=== PATIENT | male | born 1990 | race Caucasian/White ===

== ENCOUNTER 2020-10-15 09:41 | Outpatient (REF) | payer SELFPAY | END 2020-10-15 09:42 | disposition home or self-care (01) | LOC: HO.LAB 09:41 | PROVIDERS: Visit Provider Internal Medicine | DX: Z20.828 Contact with and (suspected) exposure to other viral communicable diseases (principal) | CPT/HCPCS: C9803; U0003 ==

== ENCOUNTER 2025-07-22 06:32 | Outpatient (REF) | payer OTHER, SELFPAY ==
--- OUTSIDE RECORDS SUMMARY | 2022-11-01 19:10 | XMS_ITS | Encounter Summary ---
Author Organization [facility] Address [address] [place] [address] [place] [address] Phone Care Team Providers Care Still Operator Whiskey Name Role Phone Mirella Rodarte Primary Care Provider [phone] Encounter Details Date Type Department Care Team (Late st Contact Info) Description 11/01/2022 6:10 PM [facility] Hospital Encounter [facility] [address] [place] [address] Viviana Milner CNP [address] [place] [address] [email or web address] Social History Tobacco Use Types Packs/Day Years Used Date Smoking Tobacco: Never Smokeless Tobacco: Never Alcohol Use Standard Drinks/Week Comments Yes 0 (1 standard drink = 0.6 oz pur e alcohol) 3x year Child or Family Care Answer Date Record ed Do you have problems with on e of the following making it difficult for you to work, study, or receive health care? No 08/18/2024 Education Answer Date Recorded Are you interested in help w ith more adult education (for example, completing high school, GED, job training, learning the Haitian language, technical skills, or developing parenting skills)? No 08/18/2024 Are you concerned about learning? Not on file 08/18/2024 No 08/18/2024 Yes 08/18/2024 Food Answer Date Recorded Within the past 6 months we worried whether our food would run out before we got money to buy more. Never True 08/18/2024 Within the past 6 months the food we bought just didn't last and we didn't have enough money to get more. Never True Residential Stability Answer Date Recor ded What is your housing situation today? I have jessica kemp 08/18/2024 How many times have you move d in the past 12 months? Zero (I did not move) 08/18/2024 Paying for Meds Answer Date Recorded Do you have trouble paying for medicines? No 08/18/2024 Paying Utility Bills Answer Date Record ed Do you have trouble paying your heating or elect ricity bill? No 08/18/2024 Transportation Answer Date Recorded Has the lack of transportati on kept you from medical appointments or from getting medications? No 08/18/2024 Unemployment Answer Date Recorded Are you currently unemployed or working on a part-time or temporary basis, and looking for work? No 08/18/2024 Digital Access Answer Date Recorded No 08/18/2024 Yes 08/18/2024 Do you have reliable internet access at home? Ye s 08/18/2024 Do you have a device (e.g., phone, tablet, computer) with a working camera? Yes 08/18/2024 Intimate Partner Violence Answer Date R ecorded Are you denied basic needs s uch as food, clothing, or medical care? No 10/05/2024 In the past 12 months have y ou been in a relationship with a person who hurts, threatens, or tries to control you? No 10/05/2024 Are you denied basic needs s uch as food, clothing, or medical care? No 10/05/2024 In the past 12 months have y ou been in a relationship with a person who hurts, threatens, or tries to control you? No 10/05/2024 Sex and Gender Information Value Date Recorded Sex Assigned at Male 01/11/2021 3:44 PM EST Legal Sex Male 5:25 PM EST Gender Identity Male 01/11/2021 3:44 PM EST Sexual Orientation Straight 01/11/2021 3: 44 PM EST documented as of this encounter Functional Status * Calculated C-SSRS Risk Score (Lifetime/Recent) Answer Date of Assessment Author No Risk Indicated 03/02/2024 5:13 PM EDT Jessika Waite, RN * Richardson Suicide Severity Rating Scale (Screener/Recent Self-Report) Question Answer Date of Assessment Author 1. Wish to be (Past 1 Month) No 024 5:13 PM EDT Jessika Waite RN 2. Non-Specific Active Suici kaycee Thoughts (Past 1 Month) No 03/02/2024 5:13 PM EDT Jessika Waite RN 6. Suicidal Behavior (Lifetime) No 5:13 PM EDT Jessika Waite RN documented as of this encounter Plan of Treatment Upcoming Encounters Date Type Department Care Team (Latest Contact Info) Description 10/08/2025 2:30 PM EST Telemedicine - audio only [facility] Neurology [address] [place] [address] [place] [address] Cornell Hernandez MD [address] [place] [address], [address] [place] [address] [email or web address] 02/17/2026 4:00 PM EDT Office Visit [address] [place] [address] Haydee Moore [address] [place] [address], [address] [place] [address] [email or web address] documented as of this encounter Procedures Procedure Name Priority Date/Time Associated Diagnosis Comments XR FOOT 3 OR MORE VIEWS (RIGHT) Urgent/patient waiting 11/01/2022 6:19 PM EST Acute foot pain, right documented in this encounter Results * XR FOOT 3 OR MORE VIEWS (RIGHT) (11/01/2022 6:19 PM EST) Anatomical Region Laterality Modality Foot Right Computed Radiogr aphy 11/01/2022 6:36 PM EST Impressions 11/01/2022 6:38 PM EST 1. Possible cortical lucencies along the lateral cuneiforms seen on AP and oblique views, without discrete cortical break, may be due to tissue overlay, represent nutrient channels, or suggest nondisplaced fracture. Correlation with point tenderness. 2. Soft tissue swelling about the forefoot. A clinically significant result was communicated and documented via a closed loop communication system. Narrative 11/01/2022 6:38 PM EST XR FOOT 3 OR MORE VIEWS (RIGHT) COMPARISON: None. FINDINGS: Possible cortical lucencies along the lateral cuneiform seen on AP and oblique views, without discrete cortical break. Normal alignment. Scattered degenerative changes of the forefoot and interphalangeal joints. Tiny crescentic cortical outgrowth of the first digit distal phalanx with possible medullary continuity, likely benign, such as osteochondroma. Mild soft tissue swelling along the dorsal, medial greater than lateral, forefoot. Procedure Note Ibeth Sunshine MD - 11/01/2022 XR FOOT 3 OR MORE VIEWS (RIGHT) COMPARISON: None. FINDINGS: Possible cortical lucencies along the lateral cuneiform seen on AP andoblique views, without discrete cortical break. Normal alignment.Scattered degenerative changes of the forefoot and interphalangeal joints.Tiny crescentic cortical outgrowth of the first digit distal phalanx withpossible medullary continuity, likely benign, such as osteochondroma. Mildsoft tissue swelling along the dorsal, medial greater than lateral,forefoot. IMPRESSION: 1. Possible cortical lucencies along the lateral cuneiforms seen on APand oblique views, without discrete cortical break, may be due to tissueoverlay, represent nutrient channels, or suggest nondisplaced fracture.Correlation with point tenderness. 2. Soft tissue swelling about the forefoot. A clinically significant result was communicated and documented via aclosed loop communication system. us Viviana Milner POWER MULE OPERATOR IMG XR LOWER EXTREMITY Ella l Result documented in this encounter Visit Diagnoses Not on filedocumented in this encounter Additional Health Concerns Infection Onset Date Last Indicated Resolved Time COVID-19 12/29/2024 12/29/2024 01/19/2025 1:23 AM EST documented as of this encounter Care Teams Still Operator Whiskey Relationship Specialty Start Date End Date Mirella Rodarte PA [address] [place] [address] PCP - General 10/03/22 08/23/24 documented as of this encounter Additional Source Comments The information contained in this document represents components of the legal health record. It is not the complete legal health record.[facility]
--- OUTSIDE RECORDS SUMMARY | 2025-07-22 06:34 | XMS_ITS | Encounter Summary ---
Author Organization [facility] Address [address] [place] [address] [place] [address] Phone Care Team Providers Care Recording Studio Intern Name Role Phone Shekhar Parham MD Primary Care Provider [phone] Unknown, Unknown Primary Care Provider Shekhar Marie MD Primary Care Provider [phone] Mirella Rodarte Primary Care Provider [phone] Haydee Moore Primary Care Provider Encounter Details Date Type Department Care Team (Late st Contact Info) Description 08/02/2021 Procedure Pass [facility] Endoscopy Admitting Dept Virtual Department [address] [place] [address] Social History Tobacco Use Types Packs/Day Years Used Date Smoking Tobacco: Never Smokeless Tobacco: Never Alcohol Use Standard Drinks/Week Comments Yes 0 (1 standard drink = 0.6 oz pur e alcohol) rare Sex and Gender Information Value Date Recorded Sex Assigned at Male 01/11/2021 3:44 PM EST Legal Sex Male 5:25 PM EST Gender Identity Male 01/11/2021 3:44 PM EST Sexual Orientation Straight 01/11/2021 3: 44 PM EST documented as of this encounter Plan of Treatment Upcoming Encounters Date Type Department Care Team (Latest Contact Info) Description 10/08/2025 2:30 PM EST Telemedicine - audio only [facility] Neurology [address] [place] [address] [place] [address] Cornell Hernandez MD [address] [facility], 2nd [place] [address] 02/17/2026 4:00 PM EDT Office Visit [facility] [address] [address] Haydee Moore [address] [facility], [address] [place] [address] [email or web address] documented as of this encounter Visit Diagnoses Not on filedocumented in this encounter Additional Health Concerns Infection Onset Date Last Indicated Resolved Time CoV-Risk 11/27/2021 11/27/2021 12/07/2021 1:24 AM EST COVID-19 12/29/2024 12/29/2024 01/19/2025 1:23 AM EST documented as of this encounter Care Teams Recording Studio Intern Relationship Specialty Start Date End Date Shekhar Parham MD [address] [place] [address], [address] [place] [address] PCP - General Internal Medicine 05/27/20 02/19/22 Unknown, MD Juan Luis PCP - General 02/20/22 03/15/22 Shekhar Parham MD [address] [place] [address], [address] [place] [address] PCP - General Internal Medicine 03/16/22 10/02/22 Mirella Rodarte PA [address] [place] [address] PCP - General 10/03/22 08/23/24 Haydee Moore [address] [place] [address], [address] [place] [address] PCP - General Family Medicine 08/24/24 documented as of this encounter Additional Source Comments The information contained in this document represents components of the legal health record. It is not the complete legal health record.[facility]
--- OUTSIDE RECORDS SUMMARY | 2025-07-22 06:34 | XMS_ITS | Encounter Summary ---
Author Organization [facility] [place] [facility] Address [address] [place] [address] [place] [address] Phone Care Team Providers Care Security Tech Name Role Phone Shekhar Parham MD Primary Care Provider [phone] Unknown, Unknown Primary Care Provider Shekhar Marie MD Primary Care Provider [phone] Mirella Rodarte Primary Care Provider [phone] Haydee Moore Primary Care Provider Encounter Details Date Type Department Care Team (Late st Contact Info) Description 06/02/2021 Procedure Pass [address] [address] Social History Tobacco Use Types Packs/Day Years [...] 2:30 PM EST Telemedicine - audio only [facility] Neurology [address] [place] [address] [place] [address] Cornell Hernandez MD 22 [facility], 2nd [place] [address] 02/17/2026 4:00 PM EDT Office Visit [facility] Medicine [address] [place] [address] [place] [address] Haydee Moore 22 [facility], [address] [place] [address] [email or web address] documented as of this encounter Visit Diagnoses Not on filedocumented in this encounter Additional Health Concerns Infection Onset Date Last Indicated Resolved Time CoV-Risk 11/27/2021 11/27/2021 12/07/2021 1:24 AM EST COVID-19 12/29/2024 12/29/2024 01/19/2025 1:23 AM EST documented as of this encounter Care Teams Security Tech Relationship Specialty Start Date End Date Shekhar Parham MD [address] [place] [address], [address] [place] [address] PCP - General Internal Medicine 05/27/20 02/19/22 Unknown, MD Juan Luis PCP - General 02/20/22 03/15/22 Shekhar Parham MD [address] [place] [address], [address] [place] [address] PCP - General Internal Medicine 03/16/22 10/02/22 Mirella Rodarte PA [address] [place] [address] PCP - General 10/03/22 08/23/24 Haydee Moore [address] [place] [address], [address] [place] [address] PCP - General Family Medicine 08/24/24 documented as of this encounter Additional Source Comments The information contained in this document represents components of the legal health record. It is not the complete legal health record.[facility] [place]
--- OUTSIDE RECORDS SUMMARY | 2025-07-22 06:34 | XMS_ITS | Encounter Summary ---
Author Organization [facility] Address [address] [place] [address] [place] [address] Phone Care Team Providers Care Full Time Staff Interpreter Name Role Phone Shekhar Parham MD Primary Care Provider [phone] Unknown, Unknown Primary Care Provider Shekhar Marie MD Primary Care Provider [phone] Mirella Rodarte Primary Care Provider [phone] Haydee Moore Primary Care Provider Encounter Details Date Type Department Care Team (Late st Contact Info) Description 08/02/2021 Procedure Pass [facility] Endoscopy Admitting Dept Virtual Department [address] [place] [address] Social History Tobacco Use Types Packs/Day Years [...] 2:30 PM EST Telemedicine - audio only [facility] Neurology [address] [place] [address] [place] [address] Cornell Hernandez MD 22 [facility], 2nd [facility] [place] [address] 02/17/2026 4:00 PM EDT Office Visit [facility] [address] [address] Haydee Moore 22 [facility], [address] [place] [address] [email or web address] documented as of this encounter Visit Diagnoses Not on filedocumented in this encounter Additional Health Concerns Infection Onset Date Last Indicated Resolved Time CoV-Risk 11/27/2021 11/27/2021 12/07/2021 1:24 AM EST COVID-19 12/29/2024 12/29/2024 01/19/2025 1:23 AM EST documented as of this encounter Care Teams Full Time Staff Interpreter Relationship Specialty Start Date End Date Shekhar Parham MD [address] [place] [address], [address] [place] [address] PCP - General Internal Medicine 05/27/20 02/19/22 Unknown, MD Juan Luis PCP - General 02/20/22 03/15/22 Shekhar Parham MD [address] [place] [address], [address] [place] [address] PCP - General Internal Medicine 03/16/22 10/02/22 Mirella Rodarte PA [address] [place] [address] PCP - General 10/03/22 08/23/24 Haydee Moore [address] [place] [address], [address] [place] [address] PCP - General Family Medicine 08/24/24 documented as of this encounter Additional Source Comments The information contained in this document represents components of the legal health record. It is not the complete legal health record.[facility]
--- OUTSIDE RECORDS SUMMARY | 2025-07-22 06:34 | XMS_ITS | Encounter Summary ---
Author Organization [facility] Address [address] [place] [address] [place] [address] Phone Care Team Providers Care Clinical Education Specialist Name Role Phone Shekhar Parham MD Primary Care Provider [phone] Unknown, Unknown Primary Care Provider Shekhar Marie MD Primary Care Provider [phone] Mirella Rodarte Primary Care Provider [phone] Haydee Moore Primary Care Provider Encounter Details Date Type Department Care Team (Late st Contact Info) Description 08/02/2021 Procedure Pass [facility] Endoscopy Admitting Dept Virtual Department [address] [place] [address] Social History Tobacco Use Types Packs/Day Years [...] 2:30 PM EST Telemedicine - audio only [facility] Neurology [address] [place] [address] [place] [address] Cornell Hernandez MD 22 [facility], 2nd [place] [address] 02/17/2026 4:00 PM EDT Office Visit [facility] [address] [address] Haydee Moore 22 [facility], [address] [place] [address] [email or web address] documented as of this encounter Visit Diagnoses Not on filedocumented in this encounter Additional Health Concerns Infection Onset Date Last Indicated Resolved Time CoV-Risk 11/27/2021 11/27/2021 12/07/2021 1:24 AM EST COVID-19 12/29/2024 12/29/2024 01/19/2025 1:23 AM EST documented as of this encounter Care Teams Clinical Education Specialist Relationship Specialty Start Date End Date Shekhar Parham MD [address] [place] [address], [address] [place] [address] PCP - General Internal Medicine 05/27/20 02/19/22 Unknown, MD Juan Luis PCP - General 02/20/22 03/15/22 Shekhar Parham MD [address] [place] [address], [address] [place] [address] PCP - General Internal Medicine 03/16/22 10/02/22 Mirella Rodarte PA [address] [place] [address] PCP - General 10/03/22 08/23/24 Haydee Moore [address] [place] [address], [address] [place] [address] PCP - General Family Medicine 08/24/24 documented as of this encounter Additional Source Comments The information contained in this document represents components of the legal health record. It is not the complete legal health record.[facility]
--- OUTSIDE RECORDS SUMMARY | 2025-07-22 06:34 | XMS_ITS | Encounter Summary ---
Author Organization [facility] Address [address] [place] [address] Phone Care Team Providers Care Shank Cutter Name Role Phone Mirella Rodarte Primary Care Provider Haydee Moore Primary Care Provider Encounter Details Date Type Department Care Team (Late st Contact Info) Description 03/02/2024 Procedure Pass [facility], [facility] Scan - [address] [address] Social History Tobacco Use Types Packs/Day Years Used Date Smoking Tobacco: Never Smokeless Tobacco: Never Alcohol Use Standard Drinks/Week Comments Yes 0 (1 standard drink = 0.6 oz pur e alcohol) rare Education Answer Date Recorded Are you interested in more education? Not on milka e 03/15/2023 Are you concerned about learning? Not on file 03/15/2023 No 03/15/2023 No 03/15/2023 Digital Access Answer Date Recorded No 04/13/2023 No 04/13/2023 Reliable internet access at home? Not on file 04/13/2023 Device with a working camera? Not on file Sex and Gender Information Value Date Recorded Sex Assigned at Male 01/11/2021 3:44 PM EST Legal Sex Male 5:25 PM EST Gender Identity Male 01/11/2021 3:44 PM EST Sexual Orientation Straight 01/11/2021 3: 44 PM EST documented as of this encounter Functional Status * Calculated C-SSRS Risk Score (Lifetime/Recent) Answer Date of Assessment Author No Risk Indicated 03/02/2024 5:13 PM EDT Jessika Waite RN * Ector Suicide Severity Rating Scale (Screener/Recent Self-Report) Question [...] 2:30 PM EST Telemedicine - audio only [facility] Neurology [address] [place] [address] [place] [address] Cornell Hernandez MD [address] [place] [address], [address] [place] [address] [email or web address] 02/17/2026 4:00 PM EDT Office Visit [facility] Family Medicine [address] [place] [address] [place] [address] Haydee Moore 22 [facility], [address] [place] [address] [email or web address] documented as of this encounter Visit Diagnoses Not on filedocumented in this encounter Additional Health Concerns Infection Onset Date Last Indicated Resolved Time COVID-19 12/29/2024 12/29/2024 01/19/2025 1:23 AM EST documented as of this encounter Care Teams Shank Cutter Relationship Specialty Start Date End Date Mirella Rodarte PA [address] [place] [address] PCP - General 10/03/22 08/23/24 Haydee Moore [address] [place] [address] [address] [place] [address] [email or web address] PCP - General Family Medicine 08/24/24 documented as of this encounter Additional Source Comments The information contained in this document represents components of the legal health record. It is not the complete legal health record.[facility]
--- OUTSIDE RECORDS SUMMARY | 2025-07-22 06:35 | XMS_ITS | Encounter Summary ---
Author Organization [facility] Address [address] [place] [address] Phone Care Team Providers Care Conservation Technician Name Role Phone Mirella Rodarte Primary Care Provider Haydee Moore Primary Care Provider [phone] Reason for Referral * MRI/CAT Scan - Closed Specialty Diagnoses / Procedures Referred By Melvina glover Referred To Contact Radiology Diagnoses Anesthesia of skin Procedures MRI Brain Bonny Mcmahan PA [address] [place] [phone] Phone: tel: fax: Referral ID Status Reason Start Date Expiration Date Visits Re quested Visits Authorized [id number] Closed 03/03/2024 03/03/2025 1 1 Encounter Details Date Type Department Care Team (Late st Contact Info) Description 03/03/2024 Transcribe Orders Virtual Department [address] [place] [address] Bonny Mcmahan PA [address] [place] [phone] Anesthesia of skin (Primary Dx) Social History Tobacco Use Types Packs/Day Years [...] 2:30 PM EST Telemedicine - audio only [facility] Neurology [address] [place] [address] [place] [address] Cornell Hernandez MD [address] [place] [address], 2nd [place] [address] [email or web address] 02/17/2026 4:00 PM EDT Office Visit [facility] Family Medicine [address] [place] [address] [place] [address] Haydee Moore [address] [place] [address], [address] [place] [address] [email or web address] documented as of this encounter Results * MRI BRAIN WITHOUT CONTRAST (03/05/2024 5:40 PM EDT) Anatomical Region Laterality Modality Head Magnetic Resonan ce 03/05/2024 8:26 PM EDT Impressions 03/06/2024 6:46 AM EDT No intracranial cause for the reported symptoms identified. Narrative 03/06/2024 6:46 AM EDT MRI BRAIN WITHOUT CONTRAST Referring clinician's provided indication for this examination in [facility]: Outside Radiology Order; face numbness TECHNIQUE: MRI BRAIN WITHOUT CONTRAST Multi-sequence, multi-planar MRI of the brain was performed without intravenous contrast. COMPARISON: None FINDINGS: Brain Parenchyma: Normal. No evidence of acute infarct, mass lesion, or hemorrhage. Ventricular System and Extra-Axial Spaces: Normal. No evidence of midline shift or hydrocephalus. Extracranial Structures: Arterial flow voids in the skull base are present. Cranial nerves: Normal non-gadolinium MRI appearance of the cisternal segments of the cranial nerves. No evidence of arterial vascular compression of the left trigeminal nerve. No evidence of associated mass lesion. Procedure Note All Desai MD - 03/06/2024 MRI BRAIN WITHOUT CONTRAST Referring clinician's provided indication for this examination in [facility]:Outside Radiology Order; face numbness TECHNIQUE: MRI BRAIN WITHOUT CONTRAST Multi-sequence, multi-planar MRI of the brain was performed withoutintravenous contrast. COMPARISON: None FINDINGS: Brain Parenchyma: Normal. No evidence of acute infarct, mass lesion, orhemorrhage. Ventricular System and Extra-Axial Spaces: Normal. No evidence of midlineshift or hydrocephalus. Extracranial Structures: Arterial flow voids in the skull base arepresent. Cranial nerves: Normal non-gadolinium MRI appearance of the cisternalsegments of the cranial nerves. No evidence of arterial vascularcompression of the left trigeminal nerve. No evidence of associated masslesion. IMPRESSION: No intracranial cause for the reported symptoms identified. Bonny COLEY IMBharath MR HEAD/NECK Final Re sult documented in this encounter Visit Diagnoses Diagnosis Anesthesia of skin- Primary Disturbance of skin sensation Anesthesia of skin Disturbance of skin sensation documented in this encounter Additional Health Concerns Infection Onset Date Last Indicated Resolved Time COVID-19 12/29/2024 12/29/2024 01/19/2025 1:23 AM EST documented as of this encounter Care Teams Conservation Technician Relationship Specialty Start Date End Date Mirella Rodarte PA [address] [place] [address] PCP - General 10/03/22 08/23/24 Haydee Moore [address] [place] [address], [address] [place] [id number] [email or web address] PCP - General Family Medicine 08/24/24 documented as of this encounter Additional Source Comments The information contained in this document represents components of the legal health record. It is not the complete legal health record.[facility]
--- OUTSIDE RECORDS SUMMARY | 2025-07-22 06:35 | XMS_ITS | Clinical Summary ---
Author Organization [facility] Address [address] [place] [phone] Phone Care Team Providers Care Gasoline Pump Installer Name Role Phone Haydee Moore Primary Care Provider Allergies No known active allergies Medications omeprazole (PRILOSEC) 40 MG capsule Take 1 capsule (40 mg total) by mouth 2 (two) times a day. 180 capsule 2 5 Active atogepant (QULIPTA) 60 mg tabletIndication s:Intractable hemiplegic migraine with status migrainosus Take 1 tablet (60 mg total) by mouth daily. 30 tablet 5 5 Active cyclobenzaprine (FLEXERIL) 10 MG tabletIndication s:Lumbar radiculopathy, acute Take 1 tablet (10 mg total) by mouth 3 (three) times a day as needed (for acute lower back pain). 9 tablet 5 07/07/20 25 Active Problems Problem Noted Date Diagnosed Date Lumbar radiculopathy, acute 07/04/2025 Jeffrey's esophagus 08/24/2024 Migraine with aura and witho ut status migrainosus, not intractable 08/24/2024 Assessment & Plan (08/24/2024 4:02 PM EDT): Has seen Dr. Hernandez. Takes Ubrevly 50mg daily. 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 History of Helicobacter pylori infection 021 Assessment & Plan (08/24/2024 3:59 PM EDT): Treated with tripple therapy. Repeat testing was normal. Gastroesophageal reflux disease with esophagitis 06/01/2021 Assessment & Plan (08/24/2024 3:54 PM EDT): Colonoscopy and endoscopy coming up in September. Takes omeprazole 40mg BID. Assessment & Plan (07/10/2021 4:21 PM EDT): See GI as planned, increase omeprazole to 20mg twice daily. Continue [place] Assessment & Plan (06/01/2021 2:21 PM EDT): Recommend GI evaluation for severe GERD symptoms and anemia. Anemia 01/26/2021 Assessment & Plan (08/24/2024 4:04 PM EDT): Due to GI issues, recent blood work was normal. Chronic back pain greater than 3 months duration 11/30/2020 Assessment & Plan (08/24/2024 4:00 PM EDT): Ongoing back pain. Just saw Dr. Rodgers today who is talking about an injection and a brace. Anxiety and depression 05/29/2020 Assessment & Plan (08/24/2024 4:03 PM EDT): Per patient was diagnosed in 20 minutes with bipolar. Doesn't feel like this is a correct diagnosis. Mother and three brothers have ADHD, questions that diagnosis.Previously had tried to start him on lithium. Does report what sounds like a manic episode with citalopram. PHQ was 10 today. Will refer to behavioral health. Assessment & Plan (02/19/2022 4:52 PM EDT): Stable off lithium working on access to care through [facility] for counseling. Assessment & Plan (10/15/2021 8:38 PM EST): Previously given diagnosis of bipolar, but has not demonstrated adherence to medication for sustained stretches. He may have not tolerated previous medication tried, which has further limited his adherence to psychiatric follow up. He is interested in psych med consult with Heena Montiel. Assessment & Plan (07/11/2021 7:07 PM EDT): Responding to lithium, likely bipolar disorder. Recommend continue current medication. He is able to contract for safety today. Assessment & Plan (06/01/2021 2:22 PM EDT): Consider depakote for migraine and bipolar, recommend cross taper of medications due to severe mood rebound symptoms Assessment & Plan (07/19/2020 8:23 PM EDT): Tolerating lexapro at low dose, reassess in 6 weeks for plateau effect. He is able to contract for safety. Assessment & Plan (06/17/2020 4:43 PM EDT): Unclear response, tolerating med presently, Will reassess in 2 weeks. He will get more info on his mother's behavioral health issue. Recommend taking medication when he starts his day. He is able to contract for safety today. Assessment & Plan (05/29/2020 8:35 PM EDT): Did not respond to counseling in the past and declines it now. He is interested in trial of SSRI. He has a half sister with bipolar disorder. He is advised of side effects. Reassess in 3 weeks. He is able to contract for safety today. BMI 40.0-44.9, adult 05/29/2020 Assessment & Plan (07/19/2020 8:22 PM EDT): Continue to work on weight loss. Work on nutrition, exercise. Assessment & Plan (05/29/2020 8:34 PM EDT): Lifestyle changes discussed, limiting portions, carbs, saturated fats. Increased physical activity.i Resolved Problems Problem Noted Date Diagnosed Date Resolved Date Anal itching 01/26/2021 08/24/2024 Encounters Date Type Department Care Team Description 07/09/2025 1:00 PM EDT Telemedicine - audio only [facility] Spine Medicine [address] [place] [address] [place] [address] Nathaniel Rodgers MD Disorder of sacrum (Primary Dx) 07/04/2025 10:00 AM EDT Office Visit [facility] at [address] [address] Ernestine Macias PA-C Lumbar radiculopathy, acute (Primary Dx) 06/15/2025 1:30 PM EDT Procedure visit [facility] Neurology [address] [place] [address] [place] [address] Cornell Hernandez MD Paresthesia of hand, bilateral (Primary Dx) 06/14/2025 Orders Only [facility] Neurology [address] [place] [address] [place] [address] Coco Noe [place] Numbness and tingling in both hands (Primary Dx) 06/14/2025 Orders Only [facility] Family Medicine [address] [place] [address] [place] [address] Haydee Moore 05/01/2025 Refill [facility] Neurology [address] [place] [address] [place] [address] Cornell Hernandez MD Medication Refill from Last 3 Months Immunizations Immunization Administration Dates Next Due COVID-19 (Pre-09/09) Pfizer Vaccine, mRNA, PF 10/25/2021,03/11/2021,02/17/2021 Hepatitis B Adult 06/06/2015 INFLUENZA, SPLIT VIRUS, TRIVALENT PF 08/24/2024 Influenza Quadrivalent Prese rvative Free IM 11/13/2023,09/13/2022,10/09/2021 MMR 06/06/2015 Td (adult) 5 Lf Tetanus Toxo id, PF, Adsorbed 08/24/2024 Tdap 05/27/2020(Deferred: Patient Decision - Pt left office before vaccine could be given) Family History Medical History Relation Comments No Known Problems Brother 1 ADD / ADHD Brother 2 ADD / ADHD Brother 3 ADD / ADHD Brother 4 Alcohol abuse Brother 4 Gout Brother 4 No Known Problems Brother 5 No Known Problems Brother 6 No Known Problems Brother 7 No Known Problems Daughter Alcohol abuse Father Stroke Father Heart disease Maternal Grandmother ADD / ADHD Mother Hypertension Mother No Known Problems Paternal Grandfather Autism Sister 1 Bipolar disorder Sister 1 No Known Problems Sister 2 No Known Problems Sister 3 No Known Problems Son Relation Status Comments Brother 1 Alive Brother 2 Alive Brother 3 Alive Brother 4 Alive Brother 5 Alive Brother 6 Alive Brother 7 Alive Daughter Alive Father (Age 54) Maternal Grandfather Alive Maternal Grandmother Alive Mother Alive Paternal Grandfather Paternal Grandmother Alive Sister 1 Alive Sister 2 Alive Sister 3 Alive Son Alive Social History Tobacco Use Types Packs/Day Years [...] high school, GED, job training, learning the Nepalese language, technical skills, or developing parenting skills)? [...] your housing situation today? I have jessica viridiana 08/18/2024 How many times have you move [...] Orientation Straight 01/11/2021 3: 44 PM EST Last Filed Vital Signs Vital Sign Reading Time Taken Comments Blood Pressure 131/93 07/04/2025 10:15 AM EDT Pulse 65 07/04/2025 10:15 AM EDT Temperature 36.6 C (97.9 F) 07/04/2025 10:15 AM EDT Respiratory Rate 16 07/04/2025 10:15 AM EDT Oxygen Saturation 97% 07/04/2025 10:15 AM EDT Inhaled Oxygen Concentration - - Weight 119.7 kg (264 lb) 08/24/2024 3:29 PM EDT Height 175.3 cm (5' 9.02 ) 08/24/2024 3:29 PM ED T Body Mass Index 38.97 08/24/2024 3:29 PM EDT Plan of Treatment Upcoming Encounters Date Type Department Care Team (Latest Contact Info) Description 10/08/2025 2:30 PM EST Telemedicine - audio only [facility] Neurology [address] [place] [address] Cornell Hernandez MD [address] [facility], 2nd [place] [address] [email or web address] 02/17/2026 4:00 PM EDT Office Visit [facility] Family Medicine [address] [place] [address] Haydee Moore [address] [facility], [address] [place] [address] [email or web address] Health Maintenance Due Date Last Done Comments HEPATITIS C SCREENING 2009 HIV ONE-TIME SCREENING (18-65 YEARS) 2009 REPEAT PHQ 11/28/2024 10/28/2024, 10/28/2024 INFLUENZA VACCINE (#1) 2025 , 11/13/2023, 09/13/2022, Additional history exists COVID-19 VACCINE (2024- season) 2025 09/26/2022, 10/25/2021, 03/11/2021, Additional history exists DEPRESSION SCREENING 10/28/2025 10/28/2024, 10/28/20 Adult Td,Tdap Booster 08/24/2034 08/24/2024 SMOKING STATUS SCREENING (Once After 26 Yrs) Completed 10/28/2024 HEPATITIS A VACCINES Aged Out No long er eligible based on patient's age to complete this topic HIB VACCINES Aged Out No longer eligi ble based on patient's age to complete this topic MENINGOCOCCAL VACCINES (ACWY) Aged Out No longer eligible based on patient's age to complete this topic MENINGOCOCCAL VACCINES (B) Aged Out N o longer eligible based on patient's age to complete this topic PNEUMOCOCCAL VACCINES (0-49 years) Aged Out No longer eligible based on patient's age to complete this topic Medical Devices Implanted Type Area Hands Hanger Device Identifier Shelf Expiration Date Model / Serial / Lot Clip Hemostasis 360deg 235cm Resolution 360 Latex Free 2.8mm Channel Bx/20ea - [id number] Implanted:Qty: 2 on 08/02/2021 by Fly Paec MD at [facility] [id number] / / Insurance [address] [facility] [employer] Marley [facility] [employer] FAM[facility] HOSPITALCARMINE BURNS [facility] [employer] [facility] HOSPITALCARMINE BURNS [facility] [employer] FAMILY Jase POOJACARMINE MEJIA [facility] [employer] FAM[facility] HOSPITALCARMINE BURNS [facility] [employer] FAMILY [facility] [employer] HOS[facility]ITALKATY CO Marley [facility] [employer] FAMILY [facility] [employer] FAMILY Care Teams Gasoline Pump Installer Relationship Specialty Start Date End Date Haydee Moore [address] [place] [address], [address] [place] [address] PCP - General Family Medicine 08/24/24 Additional Source Comments The information contained in this document represents components of the legal health record. It is not the complete legal health record.[facility]
--- OUTSIDE RECORDS SUMMARY | 2025-07-22 06:35 | XMS_ITS | Encounter Summary ---
Author Organization [facility] Address [address] [place] [address] Phone Care Team Providers Care Shipping And Receiving Clerk Name Role Phone Mirella Rodarte Primary Care Provider [phone] Haydee Moore Primary Care Provider Encounter Details Date Type Department Care Team (Late st Contact Info) Description 03/03/2024 Procedure Pass [address] [place] [address] Social History Tobacco Use Types Packs/Day Years [...] PM EST documented as of this encounter Last Filed Vital Signs Vital Sign Reading Time Taken Comments Blood Pressure - - Pulse - - Temperature - - Respiratory Rate - - Oxygen Saturation - - Inhaled Oxygen Concentration - - Weight 115.7 kg (255 lb) 03/05/2024 4:40 PM EDT Height 175.3 cm (5' 9 ) 03/05/2024 4:40 PM EDT Body Mass Index 37.66 03/05/2024 4:40 PM EDT documented in this encounter Plan of Treatment Upcoming Encounters Date Type Department Care Team (Latest Contact Info) Description 10/08/2025 2:30 PM EST Telemedicine - audio only [facility] Neurology [address] [place] [address] [place] [address] Cornell Hernandez MD [address] [place] [address], 2[address] [place] [address] 02/17/2026 4:00 PM EDT Office Visit [facility] Medicine [address] [place] [address] [place] [address] Haydee Moore [address] [place] [address], [address] [place] [address] [email or web address] documented as of this encounter Visit Diagnoses Not on filedocumented in this encounter Additional Health Concerns Infection Onset Date Last Indicated Resolved Time COVID-19 12/29/2024 12/29/2024 01/19/2025 1:23 AM EST documented as of this encounter Care Teams Shipping And Receiving Clerk Relationship Specialty Start Date End Date Mirella Rodarte PA [address] [place] [address] PCP - General 10/03/22 08/23/24 Haydee Moore [address] [place] [address], [address] [place] [address] PCP - General Family Medicine 08/24/24 documented as of this encounter Additional Source Comments The information contained in this document represents components of the legal health record. It is not the complete legal health record.[facility]
--- OUTSIDE RECORDS SUMMARY | 2025-07-22 06:35 | XMS_ITS | Encounter Summary ---
Author Organization [facility] Address [address] [facility] [address] [place] [address] Phone Care Team Providers Care Hot Plate Plywood Press Laborer Name Role Phone Haydee Moore Primary Care Provider Encounter Details Date Type Department Care Team ([facility] st Contact Info) Description 09/21/2024 Procedure Pass [facility] Endoscopy Admitting Dept Virtual Department [address] [place] [address] Social History Tobacco Use Types Packs/Day Years [...] high school, GED, job training, learning the Burmese language, technical skills, or developing parenting skills)? [...] computer) with a working camera? Yes 08/18/2024 Sex and Gender Information Value Date Recorded Sex Assigned at Male 01/11/2021 3:44 PM EST Legal Sex Male 5:25 PM EST Gender Identity Male 01/11/2021 3:44 PM EST Sexual Orientation Straight 01/11/2021 3: 44 PM EST documented as of this encounter Plan of Treatment Upcoming Encounters Date Type Department Care Team (Latest Contact Info) Description 10/08/2025 2:30 PM EST Telemedicine - audio only [facility] Neurology [address] [place] [address] [place] [address] Cornell Hernandez MD [address] [place] [address], 2nd [place] [address] 02/17/2026 4:00 PM EDT Office Visit [facility] Medicine [address] [place] [address] [place] [address] Haydee Moore [address] [place] [address], [address] [place] [address] [email or web address] documented as of this encounter Visit Diagnoses Not on filedocumented in this encounter Additional Health Concerns Infection Onset Date Last Indicated Resolved Time COVID-19 12/29/2024 12/29/2024 01/19/2025 1:23 AM EST Assessment Noted Time PHQ-9 Depression Total Score: 10 024 12:57 PM EDT PHQ-2 Depression Total Score: 5 08/18/20 24 12:57 PM EDT documented as of this encounter Care Teams Hot Plate Plywood Press Laborer Relationship Specialty Start Date End Date Haydee Moore [address] [place] [address], [address] [place] [address] [email or web address] PCP - General Family Medicine 08/24/24 documented as of this encounter Additional Source Comments The information contained in this document represents components of the legal health record. It is not the complete legal health record.[facility]
== END 2025-07-22 06:33 | disposition home or self-care (01) ==
LOC: CF 06:32
PROVIDERS: Visit Provider Internal Medicine
DX: Z13.89 Encounter for screening for other disorder (principal)